=== PATIENT | male | born 1970 | race Caucasian/White ===

== ENCOUNTER 2023-04-30 08:54 | Outpatient (RCR) | payer OTHER, SELFPAY | END 2023-04-30 23:59 | disposition home or self-care (01) | LOC: RPT 08:54 | PROVIDERS: ATTENDING PHYSICIAN Neurological Surgery; FAMILY PHYSICIAN Family Medicine | DX: M51.16 Intervertebral disc disorders with radiculopathy, lumbar region (principal); Z73.6 Limitation of activities due to disability | CPT/HCPCS: 97010; 97110; 97162 ==

== ENCOUNTER 2023-05-14 06:32 | Outpatient (RCR) | payer OTHER, SELFPAY | END 2023-05-14 09:10 | disposition home or self-care (01) | LOC: RPT 06:32 | PROVIDERS: ATTENDING PHYSICIAN Neurological Surgery; FAMILY PHYSICIAN Family Medicine | DX: M51.16 Intervertebral disc disorders with radiculopathy, lumbar region (principal); Z73.6 Limitation of activities due to disability | CPT/HCPCS: 97010; 97110 ==

== ENCOUNTER → 2023-05-15 09:52 | Outpatient (REF) | payer OTHER, SELFPAY | LOC: RAD 09:52 | PROVIDERS: ATTENDING PHYSICIAN Nurse Practitioner Family | DX: M25.561 Pain in right knee (principal) | CPT/HCPCS: 73564 ==

== ENCOUNTER → 2023-06-02 08:30 | Outpatient (REF) | payer OTHER, SELFPAY | LOC: RCS 08:30 | PROVIDERS: ATTENDING PHYSICIAN Nurse Practitioner Family | DX: Z01.818 Encounter for other preprocedural examination (principal); I10 Essential (primary) hypertension; M54.50 Low back pain, unspecified; E66.01 Morbid (severe) obesity due to excess calories | CPT/HCPCS: 93005 ==

== ENCOUNTER → 2023-08-14 06:53 | Outpatient (REF) | payer OTHER, SELFPAY | LOC: MRI 06:53 | PROVIDERS: ATTENDING PHYSICIAN Orthopaedic Surgery; FAMILY PHYSICIAN Nurse Practitioner Family | DX: M25.561 Pain in right knee (principal) | CPT/HCPCS: 73721 ==

== ENCOUNTER → 2023-09-02 09:11 | Outpatient (REF) | payer OTHER, SELFPAY | LOC: RCS 09:11 | PROVIDERS: ATTENDING PHYSICIAN Nuclear Medicine Nuclear Cardiology; FAMILY PHYSICIAN Physician Assistant | DX: R94.31 Abnormal electrocardiogram [ECG] [EKG] (principal); I10 Essential (primary) hypertension | CPT/HCPCS: 93306 ==